=== PATIENT | male | born 2000 | race Two or more races ===

== ENCOUNTER 2024-12-25 15:06 | Emergency (ER) | payer SELFPAY ==
[2024-12-25 15:26] VITALS: BP 154/86; PULSE 107; RESP 19; TEMP 37.2; O2SAT 98; BMI 44.8
--- NOTE | 2024-12-25 15:52 | XR_ITS ---
Examination: CT abdomen and pelvis without contrast. Coronal 3-D reconstructions. Sagittal 2-D reconstructions. Date and time of exam:December 25, 2024, 1604 hrs. Indications: Hematuria today, patient used a penis constrictor CTDI: vol (mGy): 21.2. DLP: (mGycm): 1496. Technique: Axial images of the abdomen have been obtained, 3 mm slice thickness Intravenous contrast material has not been administered. Low dose protocols were performed. One or more of the following dose reduction techniques were used; automated exposure control, adjustment of the mA and/or KV according to patient size, use of iterative reconstruction technique. Findings: Fatty infiltration throughout the liver no focal liver lesions. No gallstones No splenic pancreatic or adrenal mass. No renal or ureteral calculi, no hydronephrosis. Aorta normal size. 12 mm fat-containing umbilical hernia. Normal appendix. No bowel obstruction. No diverticulitis. Contracted urinary bladder with urinary bladder wall thickening up to 5 mm No prostatomegaly No hernia defect Tiny air density in the distal penile urethra Impression: No renal or ureteral calculi, no hydronephrosis. Normal appendix Suspicious for mild cystitis. Tiny air density in the distal penile urethra, sagittal image 138
--- NOTE | 2024-12-25 16:01 | PD.EDRME ---
Rapid Medical Screening Exam E Arrival date/time: 12/25/24 15:06 24-year-old male presents to the emergency department with complaints of gross hematuria x 1 day. Patient reports he used a penis constrictor ring for sexual pleasure with and since then has been urinating clots and blood. I have greeted and performed a focused initial assessment of this patient. Initial appropriate labs ordered at this time. A comprehensive ED assessment and evaluation of the patient and analysis of all test and completion of medical decision making process will be conducted by additional ED provider. Chief Complaint: Urogenital-Male Time Seen by Provider: 12/25/24 15:19 Vital signs: Vital Signs Temperature 98.9 F 12/25/24 15:26 Pulse Rate 107 H 12/25/24 15:26 Respiratory Rate 19 12/25/24 15:26 Blood Pressure 154/86 H 12/25/24 15:26 Pulse Oximetry (%) 98 12/25/24 15:26 Oxygen Delivery Method Room Air 12/25/24 15:26
[2024-12-25 16:35] LABS: Collection Type, Urine Clean Catch; Squamous Epithelial Cell,Urine 0 /hpf (0-5)
[2024-12-25 16:44] LABS: Basophils # (Auto) 0.1 Thou/mm3 (0.0-0.2); Basophils % (Auto) 1 % (0-2.5); Eosinophils # (Auto) 0.2 Thou/mm3 (0.0-0.5); Eosinophils % (Auto) 2 % (0-10); Hematocrit 45.9 % (41.0-53.0); Hemoglobin 15.0 g/dL (13.5-16.0); Immature Granulocytes Auto 0.06 Thou/mm3 (0.00-0.00); Lymphocytes # (Auto) 2.2 Thou/mm3 (1.0-4.8); Lymphocytes % (Auto) 14 % (10-50); Mean Corpuscular HGB Conc 32.7 g/dl (31.0-37.0); Mean Corpuscular Hemoglobin 28.4 pg (25.0-35.0); Mean Corpuscular Volume 87 fL (80-100); Monocytes # (Auto) 0.9 Thou/mm3 (0.0-0.8); Monocytes % (Auto) 6 % (0-12); Neutrophils # (Auto) 12.2 Thou/mm3 (1.8-7.7); Neutrophils % (Auto) 78 % (37-80); Nucleated Red Blood Cell # 0.00 Thou/mm3 (0.00-0.00); Nucleated Red Blood Cell % 0 /100 WBC (0); Platelet Count 307 Thou/mm3 (140-440); RDW Standard Deviation 47.3 fL (35.1-43.9); Red Blood Count 5.29 Miln/mm3 (4.50-5.90); White Blood Count 15.7 Thou/mm3 (3.8-10.6)
[2024-12-25 16:50] LABS: Alanine Aminotransferase 17 U/L (10-49); Albumin, Serum 4.8 gm/dL (3.5-5.0); Albumin/Globulin Ratio 1.7 (1.2-2.2); Alkaline Phosphatase 65 U/L (46-116); Anion Gap 12 (7-16); Aspartate Amino Transferase 18 U/L (0-34); BUN/Creatinine Ratio 10 Ratio (12-20); Bilirubin,Total 0.4 mg/dL (0.3-1.2); Blood Urea Nitrogen 10 mg/dL (9-23); Calcium 10.0 mg/dL (8.3-10.6); Calcium (Corrected) 10.0 mg/dL (8.5-10.1); Carbon Dioxide 24.5 mMol/L (20.0-31.0); Chloride 105 mMol/L (98-107); Creatinine (Component) 1.0 mg/dL (0.6-1.3); Estimated Creatinine Clearance 171.6 mL/min (>60); Globulin 2.9 gm/dL (2.3-3.5); Glucose 101 mg/dL (74-106); Osmolality,Calculated 280 (275-295); Potassium 4.7 mMol/L (3.4-5.1); Sodium 141 mMol/L (136-145); Total Protein 7.7 gm/dL (5.7-8.2); eGFR > 60 See Note
[2024-12-25 17:00] LABS: Bacteria,Urine Rare; Bilirubin,Urine Negative (Negative); Blood,Urine 3+ (Negative); Color,Urine Yellow (Lt Yel-Yel); Glucose, Urine Negative (Negative); Ketones,Urine Negative (Negative); Leukocyte Esterase,Urine Positive (Negative); Nitrite,Urine Negative (Negative); PH,Urine 6.0 (5.0-7.0); Protein,Urine 1+ (Neg - Trace); RBC,Urine 591 /hpf (0-3); Specific Gravity,Urine 1.028 (1.001-1.035); Urobilinogen,Urine Negative mg/dL (0.0-1.0); WBC,Urine 924 /hpf (0-5)
[2024-12-25 17:03] LABS: Clarity,Urine Turbid (Clear/Hazy)
--- NOTE | 2024-12-25 17:56 | PD.EDMALE ---
ED Male Genitalurinary RME/HPI General Chief complaint: Urogenital-Male Stated complaint: Urinating blood since Friday Time Seen by Provider: 12/25/24 15:19 Source: patient Arrival date/time: 12/25/24 15:06 This is a 24-year-old male presents to the emergency department with complaints of gross hematuria x 1 day. Patient reports he used a penis constrictor ring for sexual pleasure with and since then has been urinating clots and blood. +dysuria. Mode of arrival: ambulatory Limitations: no limitations RME / HPI RME / HPI Narrative: 12/25/24 15:06 24-year-old male presents to the emergency department with complaints of gross hematuria x 1 day. Patient reports he used a penis constrictor ring for sexual pleasure with and since then has been urinating clots and blood. I have greeted and performed a focused initial assessment of this patient. Initial appropriate labs ordered at this time. A comprehensive ED assessment and evaluation of the patient and analysis of all test and completion of medical decision making process will be conducted by additional ED provider. Related Data Previous Rx's ?Medication ?Instructions ?Recorded cefuroxime axetil 500 mg tablet 500 mg PO BID #14 tabs 12/26/24 Allergies Allergy/AdvReac Type Severity Reaction Status Date / Time No Known Drug Allergies Allergy Verified 12/25/24 15:12 Review of Systems Review of Systems Systems Reviewed: All systems reviewed, normal except as documented Narrative Review of Systems: Gen: No fever, no chills, no weight loss EYES: No discharge, no visual changes, no pain HEENT: No ear pain, no congestion, no sore throat PULM: No shortness of breath, no cough, no congestion CV: No chest pain, no dyspnea on exertion, no palpitations GI: No nausea, no vomiting, no diarrhea, no pain, no constipation : No frequency, no urgency,? + dysuria Musc/skel: No joint pain, no back pain Skin: No rash? ED Exam General Limitations: Present no limitations General appearance: Present alert and in no apparent distress Head Head exam: Present atraumatic Eye Eye exam: Present normal appearance, PERRL and EOMI ENT ENT exam: Present normal exam, normal oropharynx and mucous membranes moist Neck Neck exam: Present normal inspection, full ROM and trachea midline Chest Chest inspection: Present normal inspection and symmetric chest wall rise Respiratory Respiratory exam: Present normal lung sounds bilaterally Cardiovascular Cardiovascular exam: Present regular rate, normal rhythm and normal heart sounds Abdominal Exam Abdominal exam: Present soft and normal bowel sounds Extremities Exam Extremities exam: Present normal inspection and full ROM Back Exam Back exam: Present normal inspection and full ROM Neurological Exam Neurological exam: Present alert, oriented X3 and CN II-XII intact Psychiatric Psychiatric exam: Present normal affect and normal mood Skin Skin exam: Present warm, dry, intact and normal color Course Quality Measures none Orders Category Date Time Status CT abdomen pelvis wo con Stat Exams 12/25/24 15:52 Completed CBC Stat Lab 12/25/24 16:19 Completed CMP [Comprehensive Metabolic Panel] Stat Lab 12/25/24 16:19 Completed Urinalysis Stat Lab 12/25/24 16:01 Completed cefTRIAXone [Rocephin] 1,000 mg Med 12/25/24 17:43 Discontinued Lidocaine 1% 20 ml [Xylocaine 1% 20 ML] 2.1 ml IM X1 Vital Signs Vital signs: Vital Signs Temperature 98.9 F 12/25/24 15:26 Pulse Rate 107 H 12/25/24 15:26 Respiratory Rate 19 12/25/24 15:26 Blood Pressure 154/86 H 12/25/24 15:26 Pulse Oximetry (%) 98 12/25/24 15:26 Oxygen Delivery Method Room Air 12/25/24 15:26 Urogenital - Male MDM Narrative MDM Narrative:: 24-year-old male presents to the emergency department with complaints of hematuria status post sexual activity with after using a sexual pleasure ring. reports no visible trauma. Reports no pain. Noticed less bleeding. Patient is afebrile no pain no CVA tenderness. Noticed to have 591 RBCs 924 WBCs possible UTI. Gram Rocephin IM given today visit. CT abdomen pelvis did not demonstrate any renal calculi suspicious for cystitis. STI panel sent to lab. Will treat the patient with cefuroxime close follow-up with his PCP. Strictly advised patient if there is any changes and hematuria any blood clots worsening pain please return to the emergency department for further evaluation and possible urology referral. Advised to make an appointment on Friday with his PCP for strict follow-up. Patient data External records reviewed:: [facility] previous records Clinical information provided by:: patient Social determinants that could affect healthcare access:: none Patient has the following chronic illnesses:: no How is presenting disease/condition affected by chronic disease/condition?: no chronic disease Evaluation data The following diagnostics were reviewed and interpreted by me:: lab results and radiology exam(s) Lab and/or radiology exams considered but not ordered:: no Interpretation Summary: Examination: CT abdomen and pelvis without contrast. Coronal 3-D reconstructions. Sagittal 2-D reconstructions. Date and time of exam:December 25, 2024, 1604 hrs. Indications: Hematuria today, patient used a penis constrictor CTDI: vol (mGy): 21.2. DLP: (mGycm): 1496. Technique: Axial images of the abdomen have been obtained, 3 mm slice thickness Intravenous contrast material has not been administered. Low dose protocols were performed. One or more of the following dose reduction techniques were used; automated exposure control, adjustment of the mA and/or KV according to patient size, use of iterative reconstruction technique. Findings: Fatty infiltration throughout the liver no focal liver lesions. No gallstones No splenic pancreatic or adrenal mass. No renal or ureteral calculi, no hydronephrosis. Aorta normal size. 12 mm fat-containing umbilical hernia. Normal appendix. No bowel obstruction. No diverticulitis. Contracted urinary bladder with urinary bladder wall thickening up to 5 mm No prostatomegaly No hernia defect Tiny air density in the distal penile urethra Impression: No renal or ureteral calculi, no hydronephrosis. Normal appendix Suspicious for mild cystitis. Tiny air density in the distal penile urethra, sagittal image 138 Medications / Prescriptions Medications or Prescriptions considered but not ordered:: no Medication administrations:: Medication Administration History Discontinued Medications Ceftriaxone Sodium 1,000 mg/ (Lidocaine HCl 2.1 ml) 0 mg IM X1 ONE Stop: 12/25/24 17:44 Last Admin: 12/25/24 18:35 Dose: 1,000 mg Documented By: meds administered Consultations Consultation(s) initiated? (list below): No Diagnosis Urogenital Male Differential Diagnosis: urinary tract infection, priapism, urethritis, epididymitis and acute retention of urine Most likely diagnosis given after review of the tests above:: Cystitis, UTI, penile injury. Admission Indicated Admission indicated?: not indicated Admission Request Was there a request for admission?: No Disposition Plan Disposition Plan: Discharge Discharge Attestation Discharge Attestation: The patient and all family members were given an opportunity to ask questions and understood the discharge instructions. Discharge instructions specifically effects, indications for sooner follow up or return to the emergency department, and the expected course of current diagnosis. Patient condition: Stable Discharge Plan Plan Patient Disposition: HOME (Self Care) Patient condition on transfer: Stable Prescriptions/Referrals Prescriptions/Med Rec: New cefuroxime axetil 500 mg tablet 500 mg PO BID Qty: 14 0RF Referrals: No Primary/Family,Physician [Primary Care Provider] - In 1 week Problem List Clinical Impression: Urinary tract infection, Penis injury Patient/Caregiver Discharge Instructions Discharge Activity: activity as tolerated Education Materials: ED Bladder Infection, Male (Adult) Additional Instructions: - As discussed please take antibiotic as directed. Drink plenty of fluids. - If you develop any difficulty urinating or unable to urinate please return to the emergency for further evaluation. - Otherwise please follow-up with your primary doctor if your symptoms or return or continue for urology referral. Print Language: Lithuanian Stand Alone Forms: Shahrzad Award Info., Patient Portal Info Letter YOMAIRA/MONI Supervising Physician YOMAIRA/MONI Supervising Physician: Dr villafana
[2024-12-25] MEDS: cefTRIAXone 1,000 MG, LIDOCAINE 1% 20 ML 2.1 ML IM (18:35)
== END 2024-12-25 18:39 | disposition home or self-care (01) ==
PROVIDERS: Nurse Practitioner Primary Care; Emergency Provider Family Medicine
DX: N39.0 Urinary tract infection, site not specified (principal); R31.0 Gross hematuria; S39.848A Other specified injuries of external genitals, initial encounter; X58.XXXA Exposure to other specified factors, initial encounter
CPT/HCPCS: 36415; 74176; 80053; 81001; 85025; 87086; 87491; 87591; 87661; 96372; 99283; J0696; J3490

== ENCOUNTER 2025-01-22 08:31 | Emergency (ER) | payer BC, SELFPAY ==
[2025-01-22 08:42] VITALS: BP 143/92; PULSE 81; RESP 16; TEMP 37.2; O2SAT 97; BMI 43.4
--- NOTE | 2025-01-22 09:14 | EDNOTE_ITS ---
<Statement entered by Elena Contreras MD - 02/07/25 06:24> As co-signing physician, I was present and available for consult prn. I concur with the plan and care as documented by the midlevel provider. ED General RME/HPI General Chief complaint: General Adult/Misc Complain Stated complaint: Nausea, chest pain X 3 days, neck pain Time Seen by Provider: 01/22/25 08:41 Arrival date/time: 01/22/25 08:31 This is a 24-year-old male that comes into the emergency room with complaints of chest pain for the last 3 days. Patient also has pain to the lateral muscles of the right side of the neck. Patient states that he thinks he had a panic attack a couple days ago. Patient does not think he has anxiety. 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 Patient was recently treated for a fungal infection to his penis. Patient also reports a penile injury that happened approximately 2 months ago. Patient states he had unprotected sex and would like to be checked for an STD and treated. Related Data Previous Rx's ?Medication ?Instructions ?Recorded cefuroxime axetil 500 mg tablet 500 mg PO BID #14 tabs 12/26/24 Allergies Allergy/AdvReac Type Severity Reaction Status Date / Time No Known Drug Allergies Allergy Verified 01/22/25 08:35 Review of Systems Review of Systems Systems Reviewed: All systems reviewed, normal except as documented ED Exam Narrative Physical exam: VITAL SIGNS: Reviewed. GENERAL APPEARANCE: Alert and interactive, follows commands, no acute distress HEAD AND FACE: Non-traumatic. ENT: PERRL, conjuctiva pink and clear, eyelid no trauma, Mucous membrane moist. NECK: Supple, nontender, no nuchal rigidity. CHEST: No tenderness, no crepitus, no paradoxical movement, no retractions. LUNGS: breathing even and unlabored HEART: Regular rate, cap refill less than 2 seconds ABDOMEN: Soft, nondistended, no guarding NEUROLOGICAL: Gross motor function intact sensory function intact, Appropriate for age. MUSCULOSKELETAL: low back nontender, full range of motion. EXTREMITIES: No redness no swelling no skin breakdown on bilateral foot and leg. Distal neurovascular status intact bilateral foot SKIN: Color pink, dry, no rash, no lacerations, no abrasions, no contusions. Course Quality Measures none Orders Category Date Time Status XR chest 2V Stat Exams 01/22/25 09:16 Completed Drug Screen,Urine Stat Lab 01/22/25 14:21 Completed Urinalysis, C/S if Indicated Stat Lab 01/22/25 14:21 Completed cefTRIAXone [Rocephin] 500 mg Med 01/22/25 14:56 Discontinued Lidocaine 1% 20 ml [Xylocaine 1% 20 ML] 1 ml IM X1 Vital Signs Vital signs: Vital Signs Temperature 99.0 F 01/22/25 08:42 Pulse Rate 81 01/22/25 08:42 Respiratory Rate 16 01/22/25 08:42 Blood Pressure 143/92 H 01/22/25 08:42 Pulse Oximetry (%) 97 01/22/25 08:42 Oxygen Delivery Method Room Air 01/22/25 08:42 Discharge Plan Plan Patient Disposition: HOME (Self Care) Patient condition on transfer: Stable Prescriptions/Referrals Prescriptions/Med Rec: No Action cefuroxime axetil 500 mg tablet 500 mg PO BID Qty: 14 0RF Referrals: Osbaldo Nieves MD [Primary Care Provider] - In 1 week Problem List Clinical Impression: Hematuria, Possible exposure to STD Patient/Caregiver Discharge Instructions Discharge Activity: activity as tolerated Education Materials: ED Hematuria Additional Instructions: Follow up with primary provider in 1-2 days. Come back to ED if symptoms change or worsen follow-up with results with primary doctor. Print Language: [place] Stand Alone Forms: Shahrzad Award Info., Patient Portal Info Letter PA/MONI Supervising Physician PA/CORE STACKER Supervising Physician: alfredo ESQUIVEL Narrative [facility] hospital course: Spoke to patient at length. Will give patient a dose of Rocephin here. Will send patient home with doxycycline. Patient told to follow-up with results with primary provider. Patient told to wear a condom when having sexual intercourse. Patient has no other complaints at this time. Patient verbalizes that he will follow-up with primary provider 1 to 2 days. Clinical Information Provided by none Medical Records Reviewed None Meds/Rx Considered, not Ordered None Labs/Rad/Tests considered, not Ordered None Chronic Illness/Social Conditions which may negatively complicate care or outcome(s)-explain: None or not applicable Lab Interpretation Labs: none Imaging Imaging interpretation: none Medication Administration(s) none Medication Administration History Discontinued Medications Ceftriaxone Sodium 500 mg/ (Lidocaine HCl 1 ml) 0 mg IM X1 ONE Stop: 01/22/25 14:57 Last Admin: 01/22/25 15:29 Dose: 1,000 mg Documented By: EF See MAR Diagnosis Differential dx and/or dx ruled out: STD such as chlamydia gonorrhea, UTI, kidney stone, Most likely dx, and/or detailed dx discussion: STD exposure. Dispositon Disposition: Discharge Home
--- NOTE | 2025-01-22 09:16 | XR_ITS ---
Examination: PA lateral chest 2 views Technique: Upright PA lateral chest 2 views Date and time: January 22, 2025 0921 hrs. Indications: Chest pain beginning 2 days ago. Findings: Normal heart size. Lungs are clear. Osseous structures are intact. Impression: No active disease.
[2025-01-22 14:30] LABS: Collection Type, Urine Voided
[2025-01-22 14:37] LABS: Bacteria,Urine Rare; Bilirubin,Urine Negative (Negative); Blood,Urine Negative (Negative); Clarity,Urine Clear (Clear/Hazy); Color,Urine Yellow (Lt Yel-Yel); Culture Indicated,Urine Not Indicated; Glucose, Urine Negative (Negative); Ketones,Urine Negative (Negative); Leukocyte Esterase,Urine Negative (Negative); Nitrite,Urine Negative (Negative); PH,Urine 5.5 (5.0-7.0); Protein,Urine Negative (Neg - Trace); RBC,Urine 4 /hpf (0-3); Specific Gravity,Urine 1.029 (1.001-1.035); Squamous Epithelial Cell,Urine < 1 /hpf (0-5); Urobilinogen,Urine Negative mg/dL (0.0-1.0); WBC,Urine < 1 /hpf (0-5)
[2025-01-22 14:42] LABS: Amphetamine/Methamp Scrn,U Negative (Negative); Barbiturate Screen,Urine Negative (Negative); Benzodiazepines Screen,Urine Negative (Negative); Benzoylecgonine Screen, Ur Negative (Negative); Fentanyl Screen,Urine Negative (Negative); Opiate Screen,Urine Negative (Negative); THC Screen,Urine Negative (Negative)
[2025-01-22] MEDS: cefTRIAXone 500 MG, LIDOCAINE 1% 20 ML 1 ML IM (15:29)
[2025-01-22 15:47] VITALS: BP 145/87; PULSE 69; RESP 16; TEMP 36.8; O2SAT 97
== END 2025-01-22 15:50 | disposition home or self-care (01) ==
PROVIDERS: Emergency Provider Nurse Practitioner Family; PCP Family Medicine
DX: R31.9 Hematuria, unspecified (principal); R07.9 Chest pain, unspecified; Z20.2 Contact with and (suspected) exposure to infections with a predominantly sexual mode of transmission; M54.2 Cervicalgia; R11.0 Nausea
CPT/HCPCS: 71046; 80307; 81001; 87491; 87591; 87661; 96372; 99283; J0696; J3490